=== PATIENT | female | born 1980 | race American Indian/Alaskan Native ===

== ENCOUNTER 2019-09-02 07:46 | Day surgery (SDC) | payer BC ==
[2019-09-02] MEDS ORDERED: WATER FOR IRRIG STERILE IR ONE (08:18)
[2019-09-02] MEDS ORDERED: WATER FOR IRRIG STERILE ONE (08:18)
--- NOTE | 2019-09-02 08:30 | Anesthesia Consultation ---
Anesthesia Consult and Med Hx Date of service: 09/02/19 - Airway Anesthetic Teeth Evaluation: Good ROM Head & Neck: Adequate Mental/Hyoid Distance: Adequate Mallampati Class: Class II Intubation Access Assessment: Probably Good - Pre-Operative Health Status ASA Pre-Surgery Classification: ASA2 Proposed Anesthetic Plan: MAC - Other Systems Hx Obesity: Yes (BMI 32.3)
--- NOTE | 2019-09-02 08:31 | Anesthesia Day of Surgery ---
Anesthesia Day of Surgery - Day of Surgery Patient Examined: Yes Patient H&P Reviewed: Yes Patient is NPO: Yes
[2019-09-02] MEDS ORDERED: DIPRIVAN 10 MG/ML IV ONE ×2 (08:45)
[2019-09-02] MEDS ORDERED: XYLOCAINE 2% UROJET MM ONE (09:00)
[2019-09-02] MEDS ORDERED: NACL 0.9% 1000 ML 1,000 ML IV SCH (09:00)
[2019-09-02] MEDS ORDERED: XYLOCAINE 2% UROJET ONE (09:07)
--- NOTE | 2019-09-02 09:28 | Procedure Note ---
Date of procedure: 09/02/19 Pre-op diagnosis: Hematochezia Post-op diagnosis: other (Hematochezia secondary to Moderate Internal Hemorrhoids (s/p Banding x 4)) Procedure: Colonoscopy/ Flexible Banding x 4 Anesthesia: MAC Surgeon: SHOAIB RAZA Estimated blood loss: minimal Pathology: none Condition: stable Disposition: same day (Avoid aspirin and NSAID for 4 days; otherwise resume home medication. Sitz bath twice daily for 7 days. Tramadol prn for pain. Follow up in 1 to 2 weeks ([phone]).)
[2019-09-02] MEDS ORDERED: XYLOCAINE MPF 2% ONE (09:30)
--- NOTE | 2019-09-02 09:30 | Operative Report ---
PROCEDURE: Colonoscopy. INDICATIONS: This is a 38-year-old slightly obese -[place] female who has lately been noticing some lower GI bleeding. She does have a family history of cancer. The patient's grandmother had cancer. Colonoscopy was done to make sure there was not any significant lower GI pathology present. DESCRIPTION OF PROCEDURE: The procedure was done after getting informed consent with MAC anesthesia. Initial rectal exam was unremarkable. Instrument was passed through the rectum onto the cecum, which was identified with ileocecal valve and appendiceal orifice. Visualization was fair. There was a large amount of fluid within the lumen that was suctioned out. The cecum, ascending colon, transverse colon, descending colon, and sigmoid showed normal mucosa. There was no evidence of any polyps, colitis or diverticular disease, and the rectum showed moderate internal hemorrhoid, which is the possible cause of the patient's hematochezia. There was no bleeding associated with the colonoscopy, no complications associated with the colonoscopy. ASSESSMENT: Hematochezia secondary to moderate internal hemorrhoid, normal colon mucosa. PLAN: Plan is to do a flexible sigmoidoscopy with banding. The patient will be asked to follow up in the office in 1-2 weeks' time. Procedure was done in the GI lab with assistance of the GI lab team, which included RN, Marta Espinosa, Scott carrera, and with assistance of anesthesia. JOB# [id number] [facility]AK
--- NOTE | 2019-09-02 09:59 | Operative Report ---
PROCEDURE: Flexible sigmoidoscopy with banding. INDICATIONS: A 38-year-old slightly obese -[place] female with a family history of cancer, grandmother had cancer. Colonoscopy was done to assess for the patient's history of lower GI bleeding. The patient was noted to have moderately large internal hemorrhoid, flexible sigmoidoscopy with banding was done to treat the cause of her hematochezia. Procedure was done after getting informed consent. The EGD scope with the banding apparatus was introduced and retroflexed, 4 of the largest hemorrhoids were then suctioned into the suction channel and banded. A total of 5 bands were deployed, 1 did not take and 4 did. ASSESSMENT: Hematochezia secondary to internal hemorrhoids, status post banding x 4. PLAN: To ask the patient to take Sitz bath, avoid aspirin and aspirin-related products for the next few days. Otherwise, resume home medication. Follow up in the office in 1-2 weeks' time. The patient may also be given some tramadol for her pain should she have any excessive discomfort secondary to the banding. The procedure was done in the GI lab with the assistance of the GI lab team, which included RN, Scott Rashid and with assistance of anesthesia. JOB# [id number] [facility]
[2019-09-02 10:23] VITALS: BP 135/88
== END 2019-09-02 07:47 | disposition home or self-care (01) ==
LOC: GIO 07:46
DX: K92.1 Melena (principal); R19.4 Change in bowel habit; E66.9 Obesity, unspecified; K64.8 Other hemorrhoids; F32.9 Major depressive disorder, single episode, unspecified; F41.9 Anxiety disorder, unspecified; Z80.3 Family history of malignant neoplasm of breast; Z80.0 Family history of malignant neoplasm of digestive organs; Z68.32 Body mass index [BMI] 32.0-32.9, adult; Z98.891 History of uterine scar from previous surgery
CPT/HCPCS: 45378; 46221; 81025; J2704; J7030